=== PATIENT | female | born 1980 | race Two or more races ===

== ENCOUNTER 2022-03-26 06:41 | Day surgery (SDC) | payer OTHER ==
[~2022-03-26] VITALS: Ht 167.6 cm; Wt 93.0 kg
== END 2022-03-26 16:40 | disposition home or self-care (01) ==
LOC: CIR.AMB 06:41
PROVIDERS: ATTEND Colon & Rectal Surgery
DX: K64.8 Other hemorrhoids (principal); K64.4 Residual hemorrhoidal skin tags; Z88.0 Allergy status to penicillin; Z20.822 Contact with and (suspected) exposure to COVID-19